=== PATIENT | female | born 1985 | race American Indian/Alaskan Native ===

== ENCOUNTER 2017-08-01 04:44 | Emergency (ER) | payer SELFPAY ==
[2017-08-01] MEDS ORDERED: ASPIRIN PO ONE (05:10)
[2017-08-01 05:28] LABS: Basophils % (Auto) 0.6 % (0.0-1.8); Eosinophils % (Auto) 0.8 % (0.0-4.3); Hematocrit 34.3 % (30.3-42.9); Hemoglobin 11.7 gm/dl (10.1-14.3); Lymphocytes # (Auto) 1.3 K/mm3 (1.2-5.4); Lymphocytes % (Auto) 31.4 % (13.4-35.0); Mean Corpuscular HGB Conc 34 % (30-34); Mean Corpuscular Hemoglobin 30 pg (28-32); Mean Corpuscular Volume 89 fl (79-97); Monocytes # (Auto) 0.3 K/mm3 (0.0-0.8); Monocytes % (Auto) 7.1 % (0.0-7.3); Platelet Count 201 K/mm3 (140-440); Red Blood Count 3.88 M/mm3 (3.65-5.03); Red Cell Distribution Width 14.1 % (13.2-15.2)
[2017-08-01 05:41] LABS: BUN/Creatinine Ratio 16; Blood Urea Nitrogen 8 mg/dL (7-17); Calcium 8.6 mg/dL (8.4-10.2); Hemolysis Index 3
[2017-08-01 06:43] LABS: Bilirubin,Urine NEG (Negative); Blood,Urine NEG (Negative); Color,Urine Straw (Yellow); Mucus,Urine FEW /HPF; Protein,Urine <15 mg/dL mg/dL (Negative); Urobilinogen,Urine < 2.0 mg/dL (<2.0); WBC,Urine < 1.0 /HPF (0.0-6.0)
--- NOTE | 2017-08-01 08:33 | Emergency Department Report ---
ED Chest Pain HPI - General Chief Complaint: Chest Pain Stated Complaint: CHEST PAIN Time Seen by Provider: 08/01/17 08:01 Source: patient Mode of arrival: Ambulatory Limitations: No Limitations - History of Present Illness Initial Comments: 32-year-old female who presents with chest pain and near syncope. Patient had chest pain which occured while she was on her job. 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 She has been on job for 3 months. Job is not stressful according to her history. She had the sudden onset of squeezing chest pain as if someone was squeezing her heart. Left and right chest pain with left arm pain. Denies shortness of breath. She collapsed onto the ground without LOC. Patient has a history of SVT which require medication. She has not had episode of a SVT in several years. She is not taking any medications. Patient had loop recorder for several years. Followed by Dr. Filipe Hua at [place] until she moved to [place] last summer. Family history includes father who had several heart attacks with 40% blockage CAD with PTCA and cardiac stent Mother has history of palpitations and hypertension MD Complaint: chest pain -: Gradual, hour(s) (11) Onset: during exertion Pain Location: left chest, right chest Severity: severe Severity scale (0 -10): 8 Quality: squeezing Consistency: constant Improves With: nothing Worsens With: nothing Context: recent illness (flulike illness 3 weeks ago) re: denies: nausea, vomting Other Symptoms: denies: cough Treatments Prior to Arrival: aspirin - Related Data Allergies Allergy/AdvReac Type Severity Reaction Status Date / Time chocolate flavor Allergy Anaphylaxis Verified 08/01/17 05:04 peanut Allergy Anaphylaxis Verified 08/01/17 05:04 Heart Score - HEART Score History: Slightly suspicious EKG: Normal Age: < 45 Risk factors: 1-2 risk factors Troponin: < normal limit HEART Score: 1 ED Review of Systems ROS: Stated complaint: CHEST PAIN Other details as noted in HPI Comment: All other systems reviewed and negative Constitutional: no symptoms reported ENT: denies: throat pain Respiratory: denies: cough Cardiovascular: chest pain ED Past Medical Hx - Past Medical History Previous Medical History?: Yes Additional medical history: SVT - Surgical History Past Surgical History?: Yes Additional Surgical History: monitor for SVT placed and removed - Social History Smoking Status: Never Smoker Substance Use Type: Alcohol, Marijuana ED Physical Exam - General Limitations: No Limitations General appearance: alert, in no apparent distress - Head Head exam: Present: atraumatic, normocephalic - Eye Eye exam: Present: normal appearance - ENT ENT exam: Present: mucous membranes moist - Neck Neck exam: Present: normal inspection - Respiratory Respiratory exam: Present: normal lung sounds bilaterally. Absent: respiratory distress, wheezes, rales, rhonchi - Cardiovascular Cardiovascular Exam: Present: regular rate, normal rhythm. Absent: systolic murmur, diastolic murmur, rubs, gallop - GI/Abdominal GI/Abdominal exam: Present: soft, normal bowel sounds. Absent: distended, tenderness, guarding, rebound - Extremities Exam Extremities exam: Present: normal inspection - Back Exam Back exam: Present: normal inspection - Neurological Exam Neurological exam: Present: alert, oriented X3 - Psychiatric Psychiatric exam: Present: normal affect, normal mood - Skin Skin exam: Present: warm, dry, intact, normal color. Absent: rash ED Course Vital Signs 08/01/17 08/01/17 08/01/17 05:04 07:18 08:01 Temperature 98.3 F 97.7 F Pulse Rate 75 72 Respiratory 18 20 Rate Blood Pressure 122/73 Blood Pressure 136/88 [Right] O2 Sat by Pulse 100 100 100 Oximetry 08/01/17 08/01/17 08:16 08:30 Temperature 98.4 F Pulse Rate 64 61 Respiratory 12 17 Rate Blood Pressure 129/80 Blood Pressure 119/66 [Right] O2 Sat by Pulse 100 100 Oximetry ED Medical Decision Making - Lab Data Result diagrams: 08/01/17 05:13 08/01/17 05:13 - EKG Data -: EKG Interpreted by Me EKG shows normal: sinus rhythm, axis, intervals, QRS complexes, ST-T waves Rate: normal - EKG Data 08/01/17 08:33 EKG obtained 0454 Normal sinus rhythm rate 75 bpm normal axis normal intervals no ST-T signs of ischemia - Radiology Data Radiology results: report reviewed - Medical Decision Making Alexandra has hx of SVT. She explained that she noticed chest pain and dyspnea for one week. NO indication of PE/pericarditis/arrhythmia/ACS. Dc'd home with cardiology and clinic referral. Critical care attestation.: If time is entered above; I have spent that time in minutes in the direct care of this critically ill patient, excluding procedure time. ED Disposition Clinical Impression: Chest pain Disposition: TO HOME OR SELFCARE Is pt being admited?: No Does the pt Need Aspirin: No Condition: Stable Instructions: Chest Pain (ED) Referrals: [facility] [Outside] - 3-5 Days SE TAM MD [Staff Physician] - 3-5 Days Forms: Work/School Release Form(ED) Time of Disposition: 13:01
[2017-08-01] MEDS ORDERED: PERCOCET 5/325 PO ONE (08:35)
[2017-08-01] MEDS ORDERED: ZOFRAN ODT PO ONE (08:35)
[2017-08-01] MEDS ORDERED: ASPIRIN ONE (08:44)
--- NOTE | 2017-08-01 09:03 | XRay Report ---
CHEST ONE VIEW INDICATION: Chest pain. COMPARISON: None similar at this institution. FINDINGS: Portable, single, frontal chest radiograph demonstrates slight exaggerated heart size with normal mediastinal silhouette. Clear lungs. Unremarkable bones. Extrinsic EKG leads. CONCLUSION: No acute disease in the chest. Thank you for the opportunity to participate in this patient's care.
[2017-08-01] MEDS ORDERED: TORADOL IM ONE (09:25)
[2017-08-01] MEDS ORDERED: PROVENTIL IH ONE (12:37)
[2017-08-01] MEDS ORDERED: ATIVAN PO ONE (12:37)
[2017-08-01 13:12] VITALS: BP 112/78
== END 2017-08-01 13:23 | disposition home or self-care (01) ==
LOC: ED 04:44
DX: R07.9 Chest pain, unspecified (principal); R55 Syncope and collapse; M79.602 Pain in left arm; F12.10 Cannabis abuse, uncomplicated; Z91.010 Allergy to peanuts; Z91.018 Allergy to other foods
CPT/HCPCS: 36415; 71045; 80048; 81001; 84484; 84703; 85025; 85379; 93005; 93010; 96372; 99284; J1885; Q0162

== ENCOUNTER 2017-08-03 15:47 | Inpatient (IN) | payer OTHER ==
[2017-08-03] MEDS ORDERED: ASPIRIN PO ONE (16:32)
[2017-08-03 16:48] LABS: Basophils % (Auto) 1.1 % (0.0-1.8); Eosinophils % (Auto) 0.9 % (0.0-4.3); Hematocrit 38.3 % (30.3-42.9); Hemoglobin 12.8 gm/dl (10.1-14.3); Lymphocytes # (Auto) 1.1 K/mm3 (1.2-5.4); Lymphocytes % (Auto) 32.4 % (13.4-35.0); Mean Corpuscular HGB Conc 33 % (30-34); Mean Corpuscular Hemoglobin 30 pg (28-32); Mean Corpuscular Volume 90 fl (79-97); Monocytes # (Auto) 0.4 K/mm3 (0.0-0.8); Monocytes % (Auto) 11.3 % (0.0-7.3); Platelet Count 242 K/mm3 (140-440); Red Blood Count 4.25 M/mm3 (3.65-5.03); Red Cell Distribution Width 13.7 % (13.2-15.2)
[2017-08-03 16:53] LABS: BUN/Creatinine Ratio 19; Blood Urea Nitrogen 13 mg/dL (7-17); Calcium 9.2 mg/dL (8.4-10.2); Hemolysis Index 2
[2017-08-03] MEDS ORDERED: MORPHINE IV ONE (20:52)
[2017-08-03] MEDS ORDERED: ZOFRAN IV ONE (20:52)
[2017-08-03] MEDS ORDERED: NITRO-BID 2% TP ONE (20:52)
--- NOTE | 2017-08-03 20:58 | Emergency Department Report ---
HPI - General Chief Complaint: Chest Pain Time Seen by Provider: 08/03/17 20:39 - HPI HPI: Room 23 The patient is a 32-year-old female presenting with a chief complaint of chest pain. The patient states last night she developed palpitations and diaphoresis in addition to sharp squeezing chest pain that has been constant but waxing and waning. Patient states pain began last night at 22:00. Vagal maneuvers did not help. The patient admits to shortness of breath, nausea and diaphoresis with her chest pain. Patient denies vomiting. The patient currently gives her pain score of 8/10. The patient states her last stress test occurred approximately 2 years ago which she's never had a cardiac catheterization. The patient states she came to the ED 2 days ago for similar pain and collapse. Location: Chest, see above Duration: [See above] Quality: Squeezing Severity: 8/10 Modifying factors: [see above] Context: [see above] Mode of transportation: [not driving] ED Past Medical Hx - Past Medical History Additional medical history: SVT - Surgical History Additional Surgical History: monitor for SVT placed and removed, wisdom tooth removal - Family History Family history: no significant - Social History Smoking Status: Never Smoker Substance Use Type: None (denies illicit drug use), Alcohol (occasional) ED Review of Systems ROS: Stated complaint: CHEST PAIN Other details as noted in HPI Constitutional: diaphoresis Respiratory: shortness of breath Cardiovascular: chest pain, palpitations Gastrointestinal: nausea. denies: vomiting Neurological: headache Physical Exam - Physical Exam Vital Signs: Vital Signs 08/03/17 08/03/17 16:26 20:00 Temperature 98 F 98.2 F Pulse Rate 101 H 74 Respiratory 22 16 Rate Blood Pressure 106/65 Blood Pressure 116/57 [Left] O2 Sat by Pulse 100 100 Oximetry Physical Exam: GENERAL: The patient is well-developed well-nourished female sitting on stretcher not appearing to be in acute distress. [] HEENT: Normocephalic. Atraumatic. Extraocular motions are intact. Patient has moist mucous membranes. NECK: Supple. No meningitic signs are noted. Trachea midline CHEST/LUNGS: Clear to auscultation. There is no respiratory distress noted. HEART/CARDIOVASCULAR: Regular. There is no tachycardia. There is no gallop rub or murmur. ABDOMEN: Abdomen is soft, nontender. Patient has normal bowel sounds. There is no abdominal distention. SKIN: There is no rash. There is no edema. There is no diaphoresis. NEURO: The patient is awake, alert, and oriented. The patient is cooperative. The patient has no focal neurologic deficits. The patient has normal speech. Cranial nerves II through XII grossly intact, no drift MUSCULOSKELETAL: There is no evidence of acute injury. ED Course Vital Signs 08/03/17 08/03/17 16:26 20:00 Temperature 98 F 98.2 F Pulse Rate 101 H 74 Respiratory 22 16 Rate Blood Pressure 106/65 Blood Pressure 116/57 [Left] O2 Sat by Pulse 100 100 Oximetry ED Medical Decision Making - Lab Data Result diagrams: 08/03/17 16:34 08/03/17 16:34 Laboratory Tests 08/03/17 08/03/17 08/03/17 16:34 16:34 18:54 WBC 3.4 L RBC 4.25 Hgb 12.8 Hct 38.3 MCV 90 MCH 30 MCHC 33 RDW 13.7 Plt Count 242 Lymph % (Auto) 32.4 [place] % (Auto) 11.3 H Eos % (Auto) 0.9 Baso % (Auto) 1.1 Lymph # 1.1 L [place] # 0.4 Eos # 0.0 Baso # 0.0 Seg Neutrophils % 54.3 Seg Neutrophils # 1.8 Sodium 141 Potassium 3.9 Chloride 98.4 Carbon Dioxide 23 Anion Gap 24 BUN 13 Creatinine 0.7 Estimated GFR > 60 BUN/Creatinine Ratio 19 Glucose 87 Calcium 9.2 Troponin T < 0.010 < 0.010 - EKG Data -: EKG Interpreted by Me EKG shows normal: sinus rhythm Rate: normal - EKG Data When compared to previous EKG there are: no significant change Interpretation: unchanged when compared t (08/01/2017) - Radiology Data Radiology results: image reviewed (chest x-ray) interpreted by me: Chest x-ray-no focal infiltrates, no pneumothorax - Differential Diagnosis ACS, GERD, pericarditis Critical care attestation.: If time is entered above; I have spent that time in minutes in the direct care of this critically ill patient, excluding procedure time. ED Disposition Clinical Impression: Chest pain Disposition: DC-09 OP ADMIT IP TO THIS HOSP Is pt being admited?: Yes Does the pt Need Aspirin: Yes Condition: Fair Instructions: Chest Pain (ED) Referrals: PRIMARY CARE,MD [Primary Care Provider] - 3-5 Days Time of Disposition: 21:18 (hospitalist paged)
--- NOTE | 2017-08-03 21:36 | XRay Report ---
FINAL REPORT EXAM: XR CHEST 1V AP HISTORY: chest pain TECHNIQUE: upright single view chest PRIORS: None. FINDINGS: Cardiac and mediastinal contours are unremarkable. No focal pulmonary infiltrate is identified. No pleural fluid collection seen. Pulmonary vasculature is unremarkable. IMPRESSION: Negative single-view chest
[2017-08-03] MEDS ORDERED: MILK OF MAGNESIA PO PRN (21:48)
[2017-08-03] MEDS ORDERED: MORPHINE IV PRN (21:48)
[2017-08-03] MEDS ORDERED: DULCOLAX PR PRN (21:48)
--- NOTE | 2017-08-03 21:50 | History and Physical Report ---
History of Present Illness Date of examination: 08/03/17 History of present illness: 32-year-old woman with a history of SVT foci emergency room with complaints of palpitation and chest pain. Symptoms started 2 days ago, started with palpitation followed by chest pain, or chest pain is usually intermittent but this time it is constant over the last 2 days. She describes a squeezing pain in the left substernal area, radiating to the left arm, intensity 5/10, she cannot identify exacerbating or relieving factors. Admits to nausea, , no shortness of breath, diaphoresis. She had a stress test 2 years ago which was negative. Patient has been off atenolol for 2 years, declined ablation in the past Review Of Systems: Constitutional: no weight loss Ears, eyes, nose, mouth and throat: no nasal congestion, no nasal discharge, no sinus pressure, blurry vision, diplopia Neck: No neck pain or rigidity. Cardiovascular: no orthopnea, palpitations Respiratory: No shortness of breath, cough Gastrointestinal: no abdominal pain, hematochezia Genitourinary : no dysuria, frequency , hematuria Musculoskeletal: no muscle ache Integumentary: no rash, no pruritis Neurological: no parathesias, focal weakness Endocrine: no cold or heat intolerance, no polyuria or polydipsia Hematologic/Lymphatic: no easy bruising, no easy bleeding, no gland swelling Allergic/Immunologic: no urticaria, no angioedema. PAST MEDICAL HISTORY: SVT PAST SURGICAL HISTORY: None SOCIAL HISTORY: Social alcohol, no tobacco or drugs FAMILY HISTORY: Hypertension Medications and Allergies Allergies Allergy/AdvReac Type Severity Reaction Status Date / Time chocolate flavor Allergy Anaphylaxis Verified 08/03/17 16:26 peanut Allergy Anaphylaxis Verified 08/03/17 16:26 Exam - Physical Exam Narrative exam: Gen. appearance: Patient lying in bed, no apparent distress HEENT: Normocephalic, atraumatic, pupils equally round and reactive to light, extraocular movement intact, and no sclericterus,. No JVD or thyromegaly or nodule,neck supple, no carotid bruit ,mucous membranes moist, no exudate or erythema Heart: S1, S2, regular rate and rhythm Lungs: Clear to auscultation bilaterally, breathing comfortable Abdomen: Positive bowel sounds, nontender, nondistended, no organomegaly Extremity: No edema, cyanosis, clubbing Skin: No rash, nodules, warm, dry Neuro: Oriented 3, cranial nerves II-12 intact, speech is fluent, motor and sensory intact - Constitutional Vitals: Temp Pulse Resp BP Pulse Ox 98.2 F 75 16 134/82 100 08/03/17 20:00 08/03/17 21:20 08/03/17 21:20 08/03/17 21:20 08/03/17 20:00 Results - Labs CBC & Chem 7: 08/03/17 16:34 08/03/17 16:34 Labs: Abnormal lab results 08/03/17 Range/Units 16:34 WBC 3.4 L (4.5-11.0) K/mm3 [place] % (Auto) 11.3 H (0.0-7.3) % Lymph # 1.1 L (1.2-5.4) K/mm3 - Imaging and Cardiology EKG: image reviewed Chest x-ray: image reviewed Assessment and Plan Assessment Palpitation associated with chest pain Plan Admit to medicine Check cardiac enzymes, TSH, consult cardiology DVT prophylaxis
[2017-08-03] MEDS: BENADRYL IV PRN (21:57)
[2017-08-03] MEDS ORDERED: TYLENOL ONE (22:52)
[2017-08-03] MEDS ORDERED: ASPIRIN ONE (22:52)
[2017-08-03] MEDS: TYLENOL PO PRN (22:56)
[2017-08-04] MEDS: MORPHINE IV PRN ×5 (02:26→21:41)
[2017-08-04] MEDS: BENADRYL IV PRN ×5 (02:56→21:42)
[2017-08-04 05:54] LABS: Basophils % (Auto) 0.6 % (0.0-1.8); Eosinophils % (Auto) 1.4 % (0.0-4.3); Hematocrit 35.5 % (30.3-42.9); Hemoglobin 12.2 gm/dl (10.1-14.3); Lymphocytes # (Auto) 1.6 K/mm3 (1.2-5.4); Lymphocytes % (Auto) 45.2 % (13.4-35.0); Mean Corpuscular HGB Conc 34 % (30-34); Mean Corpuscular Hemoglobin 30 pg (28-32); Mean Corpuscular Volume 88 fl (79-97); Monocytes # (Auto) 0.3 K/mm3 (0.0-0.8); Monocytes % (Auto) 9.7 % (0.0-7.3); Platelet Count 216 K/mm3 (140-440); Red Blood Count 4.05 M/mm3 (3.65-5.03); Red Cell Distribution Width 13.7 % (13.2-15.2)
[2017-08-04 06:19] LABS: BUN/Creatinine Ratio 16; Blood Urea Nitrogen 11 mg/dL (7-17); Calcium 8.6 mg/dL (8.4-10.2); Hemolysis Index 6
[2017-08-04] MEDS: LOVENOX SUB-Q SCH (09:20)
--- NOTE | 2017-08-04 09:41 | Progress Note ---
Assessment and Plan Assessment and plan: Chest pain. Check ECHO and Lexiscan. Cardiology consult pending. Paliptaions. Cont tele monitoring hx SVT History Interval history: no new issues overnight. C/o pruritis with morphine this am Hospitalist Physical - Constitutional Vitals: Temp Pulse Resp BP Pulse Ox 98.3 F 75 18 97/61 100 08/04/17 03:03 08/04/17 03:03 08/04/17 03:03 08/04/17 03:03 08/04/17 03:03 General appearance: Present: no acute distress, well-nourished - EENT Eyes: Present: PERRL, EOM intact ENT: hearing intact, clear oral mucosa, dentition normal - Neck Neck: Present: supple, normal ROM - Respiratory Respiratory effort: normal Respiratory: bilateral: CTA - Cardiovascular Rhythm: regular Heart Sounds: Present: S1 & S2. Absent: gallop, rub - Extremities Extremities: no ischemia, No edema, Full ROM - Abdominal General gastrointestinal: soft, non-tender, non-distended, normal bowel sounds - Integumentary Integumentary: Present: clear, warm, dry - Neurologic Neurologic: CNII-XII intact, moves all extremities Results - Labs CBC & Chem 7: 08/04/17 05:22 08/04/17 05:22 Labs: Laboratory Last Values WBC 3.6 K/mm3 (4.5-11.0) L 08/04/17 05:22 RBC 4.05 M/mm3 (3.65-5.03) 08/04/17 05:22 Hgb 12.2 gm/dl (10.1-14.3) 08/04/17 05:22 Hct 35.5 % (30.3-42.9) 08/04/17 05:22 MCV 88 fl (79-97) 08/04/17 05:22 MCH 30 pg (28-32) 08/04/17 05:22 MCHC 34 % (30-34) 08/04/17 05:22 RDW 13.7 % (13.2-15.2) 08/04/17 05:22 Plt Count 216 K/mm3 (140-440) 08/04/17 05:22 Lymph % (Auto) 45.2 % (13.4-35.0) H 08/04/17 05:22 [place] % (Auto) 9.7 % (0.0-7.3) H 08/04/17 05:22 Eos % (Auto) 1.4 % (0.0-4.3) 08/04/17 05:22 Baso % (Auto) 0.6 % (0.0-1.8) 08/04/17 05:22 Lymph # 1.6 K/mm3 (1.2-5.4) 08/04/17 05:22 [place] # 0.3 K/mm3 (0.0-0.8) 08/04/17 05:22 Eos # 0.0 K/mm3 (0.0-0.4) 08/04/17 05:22 Baso # 0.0 K/mm3 (0.0-0.1) 08/04/17 05:22 Seg Neutrophils % 43.1 % (40.0-70.0) 08/04/17 05:22 Seg Neutrophils # 1.5 K/mm3 (1.8-7.7) L 08/04/17 05:22 Sodium 142 mmol/L (137-145) 08/04/17 05:22 Potassium 3.6 mmol/L (3.6-5.0) 08/04/17 05:22 Chloride 101.8 mmol/L (98-107) 08/04/17 05:22 Carbon Dioxide 26 mmol/L (22-30) 08/04/17 05:22 Anion Gap 18 mmol/L 08/04/17 05:22 BUN 11 mg/dL (7-17) 08/04/17 05:22 Creatinine 0.7 mg/dL (0.7-1.2) 08/04/17 05:22 Estimated GFR > 60 ml/min 08/04/17 05:22 BUN/Creatinine Ratio 16 % 08/04/17 05:22 Glucose 97 mg/dL (65-100) 08/04/17 05:22 Calcium 8.6 mg/dL (8.4-10.2) 08/04/17 05:22 Troponin T < 0.010 ng/mL (0.00-0.029) 08/03/17 23:35 TSH 0.929 mlU/mL (0.270-4.200) 08/04/17 05:22
--- NOTE | 2017-08-04 11:59 | Consultation ---
History of Present Illness Consult date: 08/04/17 Requesting physician: MILTON ALATORRE Consult reason: chest pain History of present illness: The patient claims that she has a history of SVT. She was placed on atenolol with control of her arrhythmia. 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 She had wanted to go off medications completely. She has not had any recurrent symptoms since then. 5 days ago, she started experiencing a squeezing recurrent substernal chest pain. While at work on that day, she claims that she suddenly became dizzy and collapsed, hitting her knee against the floor with syncope. She presented to [facility] ER and the patient was evaluated and discharged. On the next day, she continued to experience recurrent chest pain associated with presyncope prompting presentation again. She denies palpitations. She experienced some shortness of breath. On the monitor this morning, she had an episode of sinus tachycardia. At times, she was in normal sinus rhythm. Past History Past Medical History: arrhythmia (SVT) Past Surgical History: No surgical history Social history: denies: smoking, alcohol abuse, IV drug use Family history: no significant family history Medications and Allergies Allergies Allergy/AdvReac Type Severity Reaction Status Date / Time chocolate flavor Allergy Anaphylaxis Verified 08/03/17 16:26 peanut Allergy Anaphylaxis Verified 08/03/17 16:26 Home Medications Medication Instructions Recorded Confirmed Last Taken Type No Known Home Medications [No 08/04/17 08/04/17 Unknown History Reported Home Medications] Active Meds: Active Medications Acetaminophen (Tylenol) 650 mg PO Q4H PRN PRN Reason: Pain MILD(1-3)/Fever >100.5/MCCARTHY Last Admin: 08/03/17 22:56 Dose: 650 mg Bisacodyl (Dulcolax) 10 mg OR QDAY PRN PRN Reason: Constipation unrelieved by MOM Diphenhydramine HCl (Benadryl) 12.5 mg IV Q4H PRN PRN Reason: Itching Last Admin: 08/04/17 08:32 Dose: 12.5 mg Enoxaparin Sodium (Lovenox) 40 mg SUB-Q QDAY PETR Last Admin: 08/04/17 09:20 Dose: 40 mg Magnesium Hydroxide (Milk Of Magnesia) 30 ml PO Q4H PRN PRN Reason: Constipation Morphine Sulfate (Morphine) 2 mg IV Q4H PRN PRN Reason: Pain, Moderate (4-6) Last Admin: 08/04/17 07:10 Dose: 2 mg Ondansetron HCl (Zofran) 4 mg IV Q8H PRN PRN Reason: N/V unrelieved by Reglan Review of Systems Constitutional: no fever, no chills Ears, nose, mouth and throat: no ear pain, no ear discharge, no sore throat Cardiovascular: chest pain, syncope, shortness of breath, no palpitations, no lightheadedness Gastrointestinal: no abdominal pain, no nausea, no vomiting, no diarrhea, no constipation Genitourinary Female: no dysuria, no urinary frequency Rectal: no pain, no bleeding Musculoskeletal: no neck stiffness, no neck pain, no myalgias Integumentary: no rash, no pruritis Neurological: no weakness, no parathesias, no numbness, no tingling, no headaches Endocrine: no cold intolerance, no heat intolerance Hematologic/Lymphatic: no easy bruising, no easy bleeding Allergic/Immunologic: no urticaria, no wheezing Physical Examination Vital Signs Last Vital Signs Temp 97.2 F L 08/04/17 08:55 Pulse 79 08/04/17 08:55 Resp 18 08/04/17 08:55 BP 101/53 08/04/17 08:55 Pulse Ox 100 08/04/17 08:55 General appearance: no acute distress HEENT: Positive: EOMI, Normocephaly, Mucus Membranes Moist Neck: Positive: neck supple, trachea midline Cardiac: Positive: Reg Rate and Rhythm, S1/S2 Lungs: Positive: Normal Exam Neuro: Positive: Grossly Intact Abdomen: Positive: Soft, Active Bowel Sounds. Negative: Tender Skin: Positive: Clear. Negative: Rash Musculoskeletal: Normal Range of Motion Extremities: Present: normal. Absent: edema Results 08/04/17 05:22 08/04/17 05:22 CBC 08/03/17 08/04/17 Range/Units 16:34 05:22 WBC 3.4 L 3.6 L (4.5-11.0) K/mm3 RBC 4.25 4.05 (3.65-5.03) M/mm3 Hgb 12.8 12.2 (10.1-14.3) gm/dl Hct 38.3 35.5 (30.3-42.9) % Plt Count 242 216 (140-440) K/mm3 Lymph # 1.1 L 1.6 (1.2-5.4) K/mm3 [place] # 0.4 0.3 (0.0-0.8) K/mm3 Eos # 0.0 0.0 (0.0-0.4) K/mm3 Baso # 0.0 0.0 (0.0-0.1) K/mm3 Comprehensive Metabolic Panel 08/03/17 08/04/17 Range/Units 16:34 05:22 Sodium 141 142 (137-145) mmol/L Potassium 3.9 3.6 (3.6-5.0) mmol/L Chloride 98.4 101.8 (98-107) mmol/L Carbon Dioxide 23 26 (22-30) mmol/L BUN 13 11 (7-17) mg/dL Creatinine 0.7 0.7 (0.7-1.2) mg/dL Glucose 87 97 (65-100) mg/dL Calcium 9.2 8.6 (8.4-10.2) mg/dL - Imaging and Cardiology EKG: image reviewed EKG interpretations - Telemetry EKG Rhythm: Sinus Tachycardia - EKG Sinus rhythms and dysrhythmias: sinus tachycardia Assessment and Plan Obtain orthostatic parameters. Obtain d-dimer. Schedule echocardiogram and treadmill exercise stress testObtain . - Patient Problems (1) Chest pain Current Visit: Yes Status: Acute Qualifiers: Chest pain type: other chest pain Qualified Code(s): R07.89 - Other chest pain; R07.8 - Other chest pain (2) Syncope Current Visit: Yes Status: Acute (3) H/O paroxysmal supraventricular tachycardia Current Visit: Yes Status: Acute
[2017-08-04] MEDS: TYLENOL PO PRN (19:47)
[2017-08-05] MEDS: MORPHINE IV PRN ×4 (02:05→17:30)
[2017-08-05] MEDS: ZOFRAN IV PRN ×2 (02:07→10:16)
[2017-08-05] MEDS: BENADRYL IV PRN ×4 (02:08→17:31)
[2017-08-05 08:58] LABS: HCG Qualitative,Urine Negative (Negative)
[2017-08-05] MEDS ORDERED: LEXISCAN IV ONE (09:32)
[2017-08-05] MEDS: LOVENOX SUB-Q SCH (10:16)
--- NOTE | 2017-08-05 12:33 | Progress Note ---
Assessment and Plan Proceed with treadmill stress test. Await findings. Await echo. The patient has been seen in conjunction with Dr. Layne who agrees with the assessment and plan of care. - Patient Problems (1) Chest pain Current Visit: Yes Status: Acute Qualifiers: Chest pain type: other chest pain Qualified Code(s): R07.89 - Other chest pain; R07.8 - Other chest pain (2) Syncope Current Visit: Yes Status: Acute (3) H/O paroxysmal supraventricular tachycardia Current Visit: Yes Status: Chronic (4) D-dimer, elevated Current Visit: Yes Status: Acute Subjective Date of service: 08/05/17 Principal diagnosis: cp; syncope Interval history: pt for stress test this AM. no current complaints. tele reviewed - some SB noted overnight, no arrhythmias noted. Objective Last Vital Signs Temp 98.2 F 08/04/17 23:22 Pulse 63 08/04/17 23:22 Resp 20 08/05/17 12:32 BP 103/55 08/04/17 23:22 Pulse Ox 100 08/04/17 23:22 - Physical Examination General: No Apparent Distress HEENT: Positive: EOMI, Normocephaly, Mucus Membranes Moist Neck: Positive: neck supple, trachea midline Cardiac: Positive: Reg Rate and Rhythm, S1/S2 Lungs: Positive: clear to auscultation Neuro: Positive: Grossly Intact Abdomen: Positive: Soft, Active Bowel Sounds. Negative: Tender Skin: Positive: Clear. Negative: Rash Musculoskeletal: Normal Range of Motion Extremities: Present: normal. Absent: edema - Imaging and Cardiology EKG: image reviewed Echo: pending - Telemetry EKG Rhythm: Sinus Rhythm - EKG Sinus rhythms and dysrhythmias: sinus tachycardia
--- NOTE | 2017-08-05 14:14 | Event Note ---
Date: 08/05/17 Treadmill stress test this AM with no evidence of ischemia, nonspecific t-wave abnormalities. Pt developed burning chest pain during stress test with nausea and vomiting after stress test. Will obtain V/Q scan to r/o PE and plan for cardiac CTA tomorrow AM for further evaluation of chest pain. Geeta ARCE NP / DR. RICO
--- NOTE | 2017-08-05 15:00 | Progress Note ---
Assessment and Plan Assessment and plan: Patient is 32-year-old woman history of tachycardia presents with chest pain/ palp -Chest pain, appears atypical: Order PPI -Nausea vomiting: Treat with IV Zofran -Tachycardia, with h/o SVT: Continue telemetry monitoring Treadmill stress test this AM with no evidence of ischemia, nonspecific t-wave abnormalities. Pt developed burning chest pain during stress test with nausea and vomiting after stress test. Will obtain V/Q scan to r/o PE and plan for cardiac CTA tomorrow AM for further evaluation of chest pain. per Cards History Interval history: Patient was seen and examined. Follow-up on current diagnosis. Overnight uneventful. Patient denies any chest pain, shortness breath, or severe headaches. Imaging, nursing note, chart, labs and old chart reviewed. Discussed with patient. Patient has nausea vomiting without abdominal pain after stress test. Hospitalist Physical - Physical exam Narrative exam: GEN: WDWN, NAD, AWAKE, ALERT, ORIENTATED 3 HEENT: NCAT, EOMI, PERRL, OP Clear NECK: supple, no adenopathy, no thyromegaly, no JVD CVS/HEART: Regular tachycardia, NORMAL S1S2, pulses present bilaterally CHEST/LUNGS: CTA B, Symmetrical chest expansion, good air entry bilaterally GI/Abdomen: soft, NTND, good bowel sounds, no guarding or rebound /Bladder: no suprapubic tenderness, no CVA or paraspinal tenderness EXT/Skin: no c/c/e, no obvious rash MSK: FROM x 4 Neuro: CN 2-12 grossly intact, no new focal deficits Psych: calm - Constitutional Vitals: Temp Pulse Resp BP Pulse Ox 98.2 F 63 20 103/55 100 08/04/17 23:22 08/04/17 23:22 08/05/17 12:32 08/04/17 23:22 08/04/17 23:22 General appearance: Present: no acute distress Results - Labs CBC & Chem 7: 08/04/17 05:22 08/04/17 05:22 Labs: Laboratory Last Values WBC 3.6 K/mm3 (4.5-11.0) L 08/04/17 05:22 RBC 4.05 M/mm3 (3.65-5.03) 08/04/17 05:22 Hgb 12.2 gm/dl (10.1-14.3) 08/04/17 05:22 Hct 35.5 % (30.3-42.9) 08/04/17 05:22 MCV 88 fl (79-97) 08/04/17 05:22 MCH 30 pg (28-32) 08/04/17 05:22 MCHC 34 % (30-34) 08/04/17 05:22 RDW 13.7 % (13.2-15.2) 08/04/17 05:22 Plt Count 216 K/mm3 (140-440) 08/04/17 05:22 Lymph % (Auto) 45.2 % (13.4-35.0) H 08/04/17 05:22 [place] % (Auto) 9.7 % (0.0-7.3) H 08/04/17 05:22 Eos % (Auto) 1.4 % (0.0-4.3) 08/04/17 05:22 Baso % (Auto) 0.6 % (0.0-1.8) 08/04/17 05:22 Lymph # 1.6 K/mm3 (1.2-5.4) 08/04/17 05:22 [place] # 0.3 K/mm3 (0.0-0.8) 08/04/17 05:22 Eos # 0.0 K/mm3 (0.0-0.4) 08/04/17 05:22 Baso # 0.0 K/mm3 (0.0-0.1) 08/04/17 05:22 Seg Neutrophils % 43.1 % (40.0-70.0) 08/04/17 05:22 Seg Neutrophils # 1.5 K/mm3 (1.8-7.7) L 08/04/17 05:22 D-Dimer 242.72 ng/mlDDU (0-234) H 08/04/17 12:53 Sodium 142 mmol/L (137-145) 08/04/17 05:22 Potassium 3.6 mmol/L (3.6-5.0) 08/04/17 05:22 Chloride 101.8 mmol/L (98-107) 08/04/17 05:22 Carbon Dioxide 26 mmol/L (22-30) 08/04/17 05:22 Anion Gap 18 mmol/L 08/04/17 05:22 BUN 11 mg/dL (7-17) 08/04/17 05:22 Creatinine 0.7 mg/dL (0.7-1.2) 08/04/17 05:22 Estimated GFR > 60 ml/min 08/04/17 05:22 BUN/Creatinine Ratio 16 % 08/04/17 05:22 Glucose 97 mg/dL (65-100) 08/04/17 05:22 Calcium 8.6 mg/dL (8.4-10.2) 08/04/17 05:22 Troponin T < 0.010 ng/mL (0.00-0.029) 08/03/17 23:35 TSH 0.929 mlU/mL (0.270-4.200) 08/04/17 05:22 Urine HCG, Qual Negative (Negative) 08/05/17 07:16
[2017-08-05] MEDS ORDERED: NACL 0.9% 500 ML 500 ML IV ONE (21:39)
[2017-08-05] MEDS ORDERED: LOPRESSOR PO ONE (22:00)
[2017-08-06] MEDS: BENADRYL IV PRN ×3 (00:08→09:59)
[2017-08-06] MEDS: MORPHINE IV PRN ×5 (00:10→21:29)
--- NOTE | 2017-08-06 03:48 | Treadmill Report ---
REASON FOR STUDY: Chest pain. The patient exercised on Yahir protocol for 11 minutes 30 seconds. Resting heart rate was 60, resting blood pressure 117/73, max heart rate is 155, which is 84% maximum heart rate, max blood pressure was 142/89. Resting EKG sinus rhythm with mild early repolarization. The patient had EKG changes with downsloping ST's at the peak of exercise in the inferolateral leads, 2 mm that resolved in recovery noted. The patient had chest pressure, chest burning during the last stage. The patient's max blood pressure is 142/89. SUMMARY: 1. Equivocal treadmill stress test 2. Good exercise capacity 11-1/2 minutes on Yahir protocol. 3. No exaggerated blood pressure response. 4. There was no inducible supraventricular tachycardia during the stress test. JOB# [id number] MARIA DE JESUS/SHIKHA ZENG
[2017-08-06] MEDS ORDERED: LOPRESSOR PO ONE ×3 (06:00→22:00)
[2017-08-06] MEDS: LOVENOX SUB-Q SCH (09:58)
--- NOTE | 2017-08-06 11:52 | Progress Note ---
Assessment and Plan Coronary angiography this morning. If that is negative, she will have a VQ scan performed this afternoon. If that is negative, she may be discharged home to follow-up at my office in one week. - Patient Problems (1) Chest pain Current Visit: Yes Status: Acute Qualifiers: Chest pain type: other chest pain Qualified Code(s): R07.89 - Other chest pain; R07.8 - Other chest pain (2) Syncope Current Visit: Yes Status: Acute (3) H/O paroxysmal supraventricular tachycardia Current Visit: Yes Status: Chronic Subjective Date of service: 08/06/17 Principal diagnosis: CP, syncope Interval history: She continues to experience substernal chest pain. Yesterday, her stress EKG was inconclusive especially with chest pain during exercise. Objective Vital Signs Temp Pulse Resp Resp BP BP Pulse Ox 08/06/17 08:59 98.5 F 74 16 102/53 100 08/06/17 05:22 20 08/06/17 04:34 98.4 F 67 16 108/55 100 08/06/17 00:03 98.8 F 67 20 104/55 100 08/05/17 22:00 67 22 98 08/05/17 20:39 20 08/05/17 20:03 98.6 F 81 16 87/46 100 08/05/17 18:00 18 08/05/17 17:30 18 08/05/17 15:41 98.2 F 63 16 102/62 99 08/05/17 13:02 20 08/05/17 12:32 98.1 F 66 16 107/59 100 08/05/17 12:30 18 - Physical Examination General: No Apparent Distress HEENT: Positive: EOMI, Normocephaly, Mucus Membranes Moist Neck: Positive: neck supple, trachea midline Cardiac: Positive: Reg Rate and Rhythm, S1/S2 Lungs: Positive: clear to auscultation Neuro: Positive: Grossly Intact Abdomen: Positive: Soft, Active Bowel Sounds. Negative: Tender Skin: Positive: Clear. Negative: Rash Musculoskeletal: Normal Range of Motion Extremities: Present: normal. Absent: edema - Imaging and Cardiology EKG: image reviewed Echo: image reviewed - Telemetry EKG Rhythm: Sinus Rhythm - EKG Sinus rhythms and dysrhythmias: sinus tachycardia
[2017-08-06] MEDS ORDERED: NITROSTAT SL ONE ×2 (12:19→13:46)
[2017-08-06] MEDS ORDERED: NACL ONE (12:20)
[2017-08-06] MEDS ORDERED: LOPRESSOR IV ONE ×2 (12:20→13:00)
[2017-08-06] MEDS ORDERED: BENADRYL ONE (13:02)
[2017-08-06] MEDS ORDERED: BENADRYL IV ONE (13:19)
[2017-08-06] MEDS ORDERED: PEPCID IV ONE (13:32)
--- NOTE | 2017-08-06 13:48 | Progress Note ---
Assessment and Plan Assessment and plan: Patient is 32-year-old woman history of tachycardia presents with chest pain/ palp -Chest pain, appears atypical: Order PPI -Nausea vomiting: Treat with IV Zofran -Tachycardia, with h/o SVT: Continue telemetry monitoring Treadmill stress test this AM with no evidence of ischemia, nonspecific t-wave abnormalities. Pt developed burning chest pain during stress test with nausea and vomiting after stress test. Will obtain V/Q scan to r/o PE and plan for cardiac CTA tomorrow AM for further evaluation of chest pain. per Cards CT chest with allergic reaction to dye, Cardiology still evaluating. Disposition once Cardiology clears. History Interval history: Patient was seen and examined. Follow-up on current diagnosis. Overnight uneventful. Patient denies any chest pain, shortness breath, or severe headaches. Imaging, nursing note, chart, labs and old chart reviewed. Discussed with patient. Patient has nausea vomiting without abdominal pain after stress test. Hospitalist Physical - Physical exam Narrative exam: GEN: WDWN, NAD, AWAKE, ALERT, ORIENTATED 3 HEENT: NCAT, EOMI, PERRL, OP Clear NECK: supple, no adenopathy, no thyromegaly, no JVD CVS/HEART: Regular tachycardia, NORMAL S1S2, pulses present bilaterally CHEST/LUNGS: CTA B, Symmetrical chest expansion, good air entry bilaterally GI/Abdomen: soft, NTND, good bowel sounds, no guarding or rebound /Bladder: no suprapubic tenderness, no CVA or paraspinal tenderness EXT/Skin: no c/c/e, no obvious rash MSK: FROM x 4 Neuro: CN 2-12 grossly intact, no new focal deficits Psych: calm - Constitutional Vitals: Temp Pulse Resp BP Pulse Ox 97.7 F 64 18 98/60 100 08/06/17 12:22 08/06/17 12:58 08/06/17 12:58 08/06/17 12:58 08/06/17 08:59 General appearance: Present: no acute distress Results - Labs CBC & Chem 7: 08/04/17 05:22 08/04/17 05:22 Labs: Laboratory Last Values WBC 3.6 K/mm3 (4.5-11.0) L 08/04/17 05:22 RBC 4.05 M/mm3 (3.65-5.03) 08/04/17 05:22 Hgb 12.2 gm/dl (10.1-14.3) 08/04/17 05:22 Hct 35.5 % (30.3-42.9) 08/04/17 05:22 MCV 88 fl (79-97) 08/04/17 05:22 MCH 30 pg (28-32) 08/04/17 05:22 MCHC 34 % (30-34) 08/04/17 05:22 RDW 13.7 % (13.2-15.2) 08/04/17 05:22 Plt Count 216 K/mm3 (140-440) 08/04/17 05:22 Lymph % (Auto) 45.2 % (13.4-35.0) H 08/04/17 05:22 [place] % (Auto) 9.7 % (0.0-7.3) H 08/04/17 05:22 Eos % (Auto) 1.4 % (0.0-4.3) 08/04/17 05:22 Baso % (Auto) 0.6 % (0.0-1.8) 08/04/17 05:22 Lymph # 1.6 K/mm3 (1.2-5.4) 08/04/17 05:22 [place] # 0.3 K/mm3 (0.0-0.8) 08/04/17 05:22 Eos # 0.0 K/mm3 (0.0-0.4) 08/04/17 05:22 Baso # 0.0 K/mm3 (0.0-0.1) 08/04/17 05:22 Seg Neutrophils % 43.1 % (40.0-70.0) 08/04/17 05:22 Seg Neutrophils # 1.5 K/mm3 (1.8-7.7) L 08/04/17 05:22 D-Dimer 242.72 ng/mlDDU (0-234) H 08/04/17 12:53 Sodium 142 mmol/L (137-145) 08/04/17 05:22 Potassium 3.6 mmol/L (3.6-5.0) 08/04/17 05:22 Chloride 101.8 mmol/L (98-107) 08/04/17 05:22 Carbon Dioxide 26 mmol/L (22-30) 08/04/17 05:22 Anion Gap 18 mmol/L 08/04/17 05:22 BUN 11 mg/dL (7-17) 08/04/17 05:22 Creatinine 0.7 mg/dL (0.7-1.2) 08/04/17 05:22 Estimated GFR > 60 ml/min 08/04/17 05:22 BUN/Creatinine Ratio 16 % 08/04/17 05:22 Glucose 97 mg/dL (65-100) 08/04/17 05:22 Calcium 8.6 mg/dL (8.4-10.2) 08/04/17 05:22 Troponin T < 0.010 ng/mL (0.00-0.029) 08/03/17 23:35 TSH 0.929 mlU/mL (0.270-4.200) 08/04/17 05:22 Urine HCG, Qual Negative (Negative) 08/05/17 07:16
--- NOTE | 2017-08-06 14:08 | XRay Report ---
AP CHEST: HISTORY: Chest pain AP view of the chest demonstrates a normal mediastinal and cardiac contour with clear lungs and normal bony and soft tissue structures. IMPRESSION: Unremarkable AP chest.
--- NOTE | 2017-08-06 14:44 | Event Note ---
Date: 08/06/17 Pt noted to have possible allergic reaction to IV dye during attempt at CCTA today. Will pre-medicate for IV dye allergy and attempt CCTA in AM. NPO after MN. Geeta ARCE NP / DR. RICO
--- NOTE | 2017-08-06 14:45 | Nuclear Medicine Report ---
LUNG SCAN, VENTILATION AND PERFUSION: History: Chest pain, elevated d-dimer. Technique: 5mci of Tc99m MAA was infused for the perfusion images. 15mci XE 133 gas was inhaled for the ventilatory images. Correlation is made with a chest x-ray dated 08/06/17. Findings: Inhalation of Xenon gas demonstrates a normal distribution of the activity throughout both lungs. The wash out phases show no focal retention of activity. After injection of Technetium 99m macroaggregated albumin gamma camera imaging of the lungs in multiple projections demonstrates normal pulmonary contours with a homogeneous distribution of activity. No focal areas of perfusion deficiency are identified. IMPRESSION: Low probability for pulmonary embolus.
[2017-08-06] MEDS: TYLENOL PO PRN (15:20)
[2017-08-06] MEDS: BENADRYL PO SCH ×2 (15:20→23:41)
[2017-08-06] MEDS: PEPCID PO SCH (21:28)
[2017-08-07] MEDS: MORPHINE IV PRN ×3 (04:24→14:43)
[2017-08-07] MEDS ORDERED: LOPRESSOR PO ONE (06:00)
[2017-08-07] MEDS: BENADRYL PO SCH ×2 (06:41→14:40)
[2017-08-07] MEDS ORDERED: NITROSTAT SL ONE ×2 (09:14→10:30)
[2017-08-07] MEDS ORDERED: LOPRESSOR IV ONE ×3 (09:15→10:55)
[2017-08-07] MEDS ORDERED: NACL 0.9% 500 ML 0 ML ONE (09:16)
[2017-08-07] MEDS ORDERED: ATROPINE 0.1% (CARDIAC) ONE (09:16)
[2017-08-07] MEDS ORDERED: BENADRYL ONE (09:25)
[2017-08-07] MEDS ORDERED: NACL ONE (09:35)
[2017-08-07] MEDS ORDERED: ZOFRAN ONE (10:16)
[2017-08-07] MEDS: ZOFRAN IV PRN (10:19)
[2017-08-07] MEDS ORDERED: BENADRYL IV ONE (10:30)
--- NOTE | 2017-08-07 11:50 | Progress Note ---
Assessment and Plan V/Q scan was negative for pulmonary embolism yesterday. If the CCTA does not reveal any significant stenosis, she maybe discharged home this afternoon from a cardiac standpoint. She will follow-up in my office in one week. - Patient Problems (1) Chest pain Current Visit: Yes Status: Acute Qualifiers: Chest pain type: other chest pain Qualified Code(s): R07.89 - Other chest pain; R07.8 - Other chest pain (2) Syncope Current Visit: Yes Status: Acute (3) H/O paroxysmal supraventricular tachycardia Current Visit: Yes Status: Chronic Subjective Date of service: 08/07/17 Principal diagnosis: CP, syncope Interval history: She just had her CCTA performed this morning. Images are still pending. She had some N/V at the lab and received additional Benadryl. This is in addition to baseline radiocontrast allergy prophylaxis that was given previously. Objective Vital Signs Temp Temp Pulse Pulse Pulse Pulse Resp 08/07/17 11:08 08/07/17 10:45 20 08/07/17 10:30 76 08/07/17 10:19 74 08/07/17 10:07 88 08/07/17 10:03 86 08/07/17 10:02 78 78 08/07/17 10:01 72 08/07/17 10:00 72 08/07/17 09:57 72 08/07/17 09:55 57 L 08/07/17 09:52 63 08/07/17 09:45 67 08/07/17 07:33 98.8 F 72 16 08/07/17 05:53 98.8 F 64 18 08/07/17 00:51 98.2 F 67 18 08/06/17 21:28 78 08/06/17 19:47 98.8 F 78 16 08/06/17 17:37 98.7 F 16 08/06/17 12:58 67 64 08/06/17 12:55 67 08/06/17 12:50 67 08/06/17 12:45 58 L 08/06/17 12:22 97.7 F 60 08/06/17 11:58 64 Resp Resp Resp Resp BP BP BP 08/07/17 11:08 20 08/07/17 10:45 08/07/17 10:30 24 110/65 08/07/17 10:19 22 110/62 08/07/17 10:07 16 100/56 08/07/17 10:03 111/63 08/07/17 10:02 18 111/60 102/54 08/07/17 10:01 111/68 08/07/17 10:00 08/07/17 09:57 16 111/52 08/07/17 09:55 18 101/59 08/07/17 09:52 20 113/58 08/07/17 09:45 32 H 08/07/17 07:33 95/56 08/07/17 05:53 97/64 08/07/17 00:51 96/54 08/06/17 21:28 114/62 08/06/17 19:47 114/62 08/06/17 17:37 103/53 08/06/17 12:58 18 107/66 98/60 08/06/17 12:55 107/66 08/06/17 12:50 18 107/66 08/06/17 12:45 18 99/60 08/06/17 12:22 18 08/06/17 11:58 - Physical Examination General: No Apparent Distress HEENT: Positive: EOMI, Normocephaly, Mucus Membranes Moist Neck: Positive: neck supple, trachea midline Cardiac: Positive: Reg Rate and Rhythm, S1/S2 Neuro: Positive: Grossly Intact Abdomen: Positive: Soft, Active Bowel Sounds. Negative: Tender Skin: Positive: Clear. Negative: Rash Musculoskeletal: Normal Range of Motion Extremities: Present: normal. Absent: edema - Imaging and Cardiology EKG: image reviewed Echo: image reviewed - EKG Sinus rhythms and dysrhythmias: sinus tachycardia
[2017-08-07] MEDS: LOVENOX SUB-Q SCH (12:34)
[2017-08-07] MEDS: PEPCID PO SCH (12:35)
--- NOTE | 2017-08-07 12:53 | Cat Scan Report ---
CT ANGIO HEART STRUCTURE/MORPHOLOGY/FUNCTION: INDICATION: Chest pain. COMPARISON: None similar. FINDINGS: A limited chest CT scan was carried out for calcium evaluation of the coronary arteries per coronary angiography CT protocol. The cardiac portion of the exam would be interpreted by the pewter caster. This dictation is for the non-cardiac portion of the chest which was included. No evidence of hilar or mediastinal mass. Visualized lungs well-expanded. Slight nonspecific distal esophageal wall prominence/thickening, not excluded for gastroesophageal reflux and/or hiatal hernia, amongst others. Left hepatic lobe tip also wraps around the spleen in the left upper quadrant. Unremarkable bones. IMPRESSION: Unremarkable limited CT of the chest. Few incidental findings, as above. Thank you for the opportunity to participate in this patient's care.
--- NOTE | 2017-08-07 16:40 | Discharge Summary ---
Providers - Providers Date of Admission: 08/03/17 21:48 Date of discharge: 08/07/17 Attending physician: GISELE ATKINS 08/03/17 21:48 Consult to Physician [CONS] Routine Consulting Provider: DECLAN ECHAVARRIA Reason For Exam: cp, svt Place consult to:: [facility] Notified:: y Comment:: added to list Primary care physician: RIVET BUCKER Hospitalization Condition: Stable Hospital course: Patient is 32-year-old woman history of tachycardia presents with chest pain/ palp -Chest pain, appears atypical, GERD/gastritis related: Order PPI -Nausea vomiting: Treat with IV Zofran -Tachycardia, with h/o SVT: Continue telemetry monitoring -Syncope, vasovagal per report Treadmill stress test this AM with no evidence of ischemia, nonspecific t-wave abnormalities. Pt developed burning chest pain during stress test with nausea and vomiting after stress test. Will obtain V/Q scan to r/o PE and plan for cardiac CTA tomorrow AM for further evaluation of chest pain. per Cards CT chest with allergic reaction to dye, Cardiology still evaluating. Disposition once Cardiology clears. per Cardiology: "Assessment and Plan V/Q scan was negative for pulmonary embolism yesterday. If the CCTA does not reveal any significant stenosis, she maybe discharged home this afternoon from a cardiac standpoint. She will follow-up in my office in one week. - Patient Problems (1) Chest pain Current Visit: Yes Status: Acute Qualifiers: Chest pain type: other chest pain Qualified Code(s): R07.89 - Other chest pain; R07.8 - Other chest pain (2) Syncope Current Visit: Yes Status: Acute (3) H/O paroxysmal supraventricular tachycardia Current Visit: Yes Status: Chronic Subjective Date of service: 08/07/17 Principal diagnosis: CP, syncope Interval history: She just had her CCTA performed this morning. Images are still pending. She had some N/V at the lab and received additional Benadryl. This is in addition to baseline radiocontrast allergy prophylaxis that was given previously." CCTA chest unremarkable, will discharge Disposition: TO HOME OR SELFCARE Time spent for discharge: 35 mintues Core Measure Documentation - Palliative Care Palliative Care/ Comfort Measures: Not Applicable - Core Measures Any of the following diagnoses?: none - VTE Discharge Requirements Deep Vein Thrombosis/Pulmonary Embolism Present on Admission: No Has pt received <5 days of overlap therapy or INR<2.0: No Anticoagulant overlap therapy prescribed at discharge: No Contraindication No Overlap Therapy order at DC: Not Indicated Exam - Physical Exam Narrative exam: GEN: WDWN, NAD, AWAKE, ALERT, ORIENTATED 3 HEENT: NCAT, EOMI, PERRL, OP Clear NECK: supple, no adenopathy, no thyromegaly, no JVD CVS/HEART: Regular tachycardia, NORMAL S1S2, pulses present bilaterally CHEST/LUNGS: CTA B, Symmetrical chest expansion, good air entry bilaterally GI/Abdomen: soft, NTND, good bowel sounds, no guarding or rebound /Bladder: no suprapubic tenderness, no CVA or paraspinal tenderness EXT/Skin: no c/c/e, no obvious rash MSK: FROM x 4 Neuro: CN 2-12 grossly intact, no new focal deficits Psych: calm - Constitutional Vitals: Temp Pulse Resp BP Pulse Ox 97.3 F L 81 16 121/56 100 08/07/17 16:32 08/07/17 16:32 08/07/17 16:32 08/07/17 16:32 08/07/17 16:32 Plan Activity: other (no strenous activity until cleared by [employer]) Diet: regular Follow up with: PRIMARY MD CARINA [Primary Care Provider] - 3-5 Days DECLAN ECHAVARRIA MD [Staff Physician] - 7 Days Prescriptions: Famotidine [Pepcid] 20 mg PO BID #30 tablet
[2017-08-07 20:07] VITALS: BP 112/52
== END 2017-08-07 20:00 | disposition home or self-care (01) | DRG 392 ==
LOC: ED 15:47 → 4A 21:48
PROVIDERS: ADMIT Internal Medicine; ATTEND Internal Medicine
DX: K21.9 Gastro-esophageal reflux disease without esophagitis (principal); K29.70 Gastritis, unspecified, without bleeding; R55 Syncope and collapse; R00.0 Tachycardia, unspecified; Z82.49 Family history of ischemic heart disease and other diseases of the circulatory system
CPT/HCPCS: 36415; 71045; 75574; 78582; 80048; 81025; 84443; 84484; 85025; 85379; 93005; 93010; 93017; 93306; 94760; 96374; 96375; A9540; A9558; J0461; J1200; J1650; J2270; J2405; J2785; J2930; J7040; Q9967

== ENCOUNTER 2017-11-04 22:55 | Emergency (ER) | payer SELFPAY ==
[2017-11-05 00:20] LABS: Basophils % (Auto) 0.5 % (0.0-1.8); Eosinophils % (Auto) 0.7 % (0.0-4.3); Hematocrit 35.9 % (30.3-42.9); Hemoglobin 12.1 gm/dl (10.1-14.3); Lymphocytes # (Auto) 1.2 K/mm3 (1.2-5.4); Lymphocytes % (Auto) 32.2 % (13.4-35.0); Mean Corpuscular HGB Conc 34 % (30-34); Mean Corpuscular Hemoglobin 30 pg (28-32); Mean Corpuscular Volume 89 fl (79-97); Monocytes # (Auto) 0.3 K/mm3 (0.0-0.8); Monocytes % (Auto) 7.4 % (0.0-7.3); Platelet Count 200 K/mm3 (140-440); Red Blood Count 4.02 M/mm3 (3.65-5.03); Red Cell Distribution Width 13.9 % (13.2-15.2)
[2017-11-05 00:40] LABS: Alanine Aminotransferase 7 units/L (7-56); Albumin 4.4 g/dL (3.9-5); BUN/Creatinine Ratio 17; Blood Urea Nitrogen 10 mg/dL (7-17); Calcium 9.2 mg/dL (8.4-10.2); Hemolysis Index 2; Lipase 24 units/L (13-60)
[2017-11-05 03:35] LABS: Bilirubin,Urine NEG (Negative); Blood,Urine SM (Negative); Color,Urine Yellow (Yellow); Mucus,Urine 3+ /HPF; Protein,Urine <15 mg/dL mg/dL (Negative); Urobilinogen,Urine < 2.0 mg/dL (<2.0)
[2017-11-05 03:39] LABS: HCG Qualitative,Urine Negative (Negative)
[2017-11-05 08:19] VITALS: BP 115/75
== END 2017-11-05 13:00 | disposition left against medical advice (07) ==
LOC: ED 22:55
DX: R10.9 Unspecified abdominal pain (principal); Z53.21 Procedure and treatment not carried out due to patient leaving prior to being seen by health care provider
CPT/HCPCS: 36415; 80053; 81001; 81025; 83690; 85025

== ENCOUNTER 2017-11-05 23:30 | Emergency (ER) | payer SELFPAY ==
[2017-11-06 00:14] VITALS: BP 111/61
--- NOTE | 2017-11-06 01:48 | Emergency Department Report ---
ED Back Pain/Injury HPI - General Chief Complaint: Back Pain/Injury Stated Complaint: BODY PAIN Time Seen by Provider: 11/06/17 01:47 Source: patient Limitations: No Limitations - History of Present Illness Initial Comments: 32-year-old female comes in complaining of lower back pain has been going on for 1 week. Patient reports that she has had no trauma to her back. She reports that the pain is sharp and intermittent. Patient reports that she was taking BC powders but had to stop secondary to causing her to have stomach pain. Patient also reports she has a headache that started on Friday with nausea and vomited 1-2 times today. She reports she has a decrease in appetite. Patient reports that her back pain travels down to her right buttocks. MD Complaint: back pain -: week(s) (1) Similar Symptoms Previously: No Radiation: right leg Severity scale (0 -10): 8 Quality: sharp Consistency: intermittent Associated Symptoms: headaches, loss of appetite, nausea/vomiting - Related Data Previous Rx's Medication Instructions Recorded Last Taken Type Famotidine [Pepcid] 20 mg PO BID #30 tablet 08/07/17 Unknown Rx Naproxen [EC-Naprosyn] 500 mg PO BID PRN #14 tablet. 11/06/17 Unknown Rx Allergies Allergy/AdvReac Type Severity Reaction Status Date / Time Iodinated Contrast- Oral and Allergy Severe Itching Verified 11/06/17 00:25 IV Dye chocolate flavor Allergy Anaphylaxis Verified 11/06/17 00:25 peanut Allergy Anaphylaxis Verified 11/06/17 00:25 morphine AdvReac Itching Verified 11/06/17 00:25 ED Review of Systems ROS: Stated complaint: BODY PAIN Other details as noted in HPI Constitutional: denies: chills, fever Eyes: denies: eye pain, eye discharge, vision change ENT: denies: ear pain, throat pain Respiratory: denies: cough, shortness of breath, wheezing Cardiovascular: denies: chest pain, palpitations Endocrine: no symptoms reported Gastrointestinal: nausea, vomiting Musculoskeletal: back pain Neurological: headache Psychiatric: denies: anxiety, depression Hematological/Lymphatic: denies: easy bleeding, easy bruising ED Past Medical Hx - Past Medical History Hx Hypertension: No Hx Heart Attack/AMI: No Hx Congestive Heart Failure: No Hx Diabetes: No Hx Renal Disease: No Hx Asthma: No Hx COPD: No Additional medical history: SVT - Surgical History Hx Coronary Stent: No Hx Pacemaker: Yes (temp) Additional Surgical History: monitor for SVT placed and removed, wisdom tooth removal - Social History Smoking Status: Never Smoker Substance Use Type: None - Medications Home Medications: Home Medications Medication Instructions Recorded Confirmed Last Taken Type Famotidine [Pepcid] 20 mg PO BID #30 tablet 08/07/17 Unknown Rx Naproxen [EC-Naprosyn] 500 mg PO BID PRN #14 tablet. 11/06/17 Unknown Rx ED Physical Exam - General Limitations: No Limitations General appearance: alert, in no apparent distress - Head Head exam: Present: atraumatic, normocephalic - Eye Eye exam: Present: normal appearance - ENT ENT exam: Present: mucous membranes moist - Respiratory Respiratory exam: Present: normal lung sounds bilaterally. Absent: respiratory distress - Cardiovascular Cardiovascular Exam: Present: regular rate, normal rhythm. Absent: systolic murmur, diastolic murmur, rubs, gallop - Back Exam Back exam: Present: normal inspection, full ROM - Neurological Exam Neurological exam: Present: alert, oriented X3 - Psychiatric Psychiatric exam: Present: normal affect, normal mood - Skin Skin exam: Present: warm, dry, intact, normal color. Absent: rash ED Course Vital Signs 11/06/17 11/06/17 00:06 00:21 Temperature 98.5 F 98.5 F Pulse Rate 62 65 Respiratory 16 Rate Blood Pressure 111/61 111/61 O2 Sat by Pulse 99 99 Oximetry ED Medical Decision Making - Medical Decision Making Patient has been evaluated by this provider fast track. Give patient a Toradol injection. Patient has stable vital signs last menstrual period was 2017. Refer patient to [facility] for further evaluation. Critical care attestation.: If time is entered above; I have spent that time in minutes in the direct care of this critically ill patient, excluding procedure time. ED Disposition Clinical Impression: Low back pain radiating to lower extremity Headache Qualifiers: Headache type: unspecified Headache chronicity pattern: acute headache Intractability: intractable Qualified Code(s): R51 - Headache Disposition: DC-01 TO HOME OR SELFCARE Is pt being admited?: No Does the pt Need Aspirin: No Condition: Stable Additional Instructions: Please take pain medication as prescribed. Follow up with her primary care provider if symptoms persist or gets worse. Prescriptions: Naproxen [EC-Naprosyn] 500 mg PO BID PRN #14 tablet.dr MARIE Reason: Pain Referrals: PRIMARY CARE, [Primary Care Provider] - 3-5 Days [facility] [Provider Group] - 3-5 Days
[2017-11-06 02:22] LABS: HCG Qualitative,Urine Negative (Negative)
[2017-11-06 02:24] LABS: Bilirubin,Urine NEG (Negative); Blood,Urine NEG (Negative); Color,Urine Yellow (Yellow); Mucus,Urine 1+ /HPF; Protein,Urine <15 mg/dL mg/dL (Negative)
[2017-11-06] MEDS ORDERED: TORADOL IM ONE (02:47)
== END 2017-11-06 03:20 | disposition home or self-care (01) ==
LOC: ED 23:30
DX: M54.5 Low back pain (principal); R51 Headache; Z95.0 Presence of cardiac pacemaker; Z88.5 Allergy status to narcotic agent; Z91.041 Radiographic dye allergy status; Z91.02 Food additives allergy status; Z91.010 Allergy to peanuts
CPT/HCPCS: 81001; 81025; 96372; 99283; J1885